=== PATIENT | female | born 1960 | race Caucasian/White ===

== ENCOUNTER 2017-06-17 19:29 | Inpatient (IN) | payer MEDICARE ==
[~2017-06-17] VITALS: Ht 157.5 cm; Wt 55.0 kg
[~2017-06-17 19:29] MED LIST: ACYC400T PO; ADDE20 PO; ARIP1TAB12 PO; CLON1 PO; DIVA500T PO; FLUT50SP EACH NARE; SERO300T PO
[2017-06-17 19:42] VITALS: BP 93/59; PULSE 93; RESP 16; TEMP 98.6; O2SAT 96
--- NOTE | 2017-06-17 19:47 | PD ---
HPI Chief Complaint: Psychiatric Time Seen by Provider: 19:41 Travel History International Travel<30 days: No Contact w/Intl Traveler<30days: No Traveled to known affect area: No History of Present Illness HPI 56-year-old female was Monico acted and brought in for evaluation. Patient took unknown amount of lorazepam since this morning. EMS personnel reported 41 pills missing from the bottle of lorazepam. Lorazepam is 5 mg each. Patient also admitted to alcohol consumption today. Patient states that she drank vodka since this morning. Patient's roommate called 911. Patient was Monico acted and brought in for evaluation. Patient states that she is suicidal. Patient denies any headache. Patient denies any chest pain or shortness of breath. Patient denies abdominal pain. Patient denies any extremity injury. Patient states that she has history of bipolar disorder. Patient denies any other medical problem. PFSH Social History Tobacco Use: No Allergies-Medications (Allergen,Severity, Reaction): Coded Allergies: No Known Allergies (Verified Allergy, Unknown, 06/17/17) Reported Meds & Prescriptions Reported Meds & Active Scripts Active Adderall (Amphetamine-Dextroamphetamine) 20 Mg Tab 20 Mg PO BID Avoid late evening doses. Space doses at least 4 to 6 hours if more than once/day dosing. Reported Ativan (Lorazepam) 0.5 Mg Tab 0.5 Mg PO DAILY PRN Fluticasone Nasal [place] 50 Mcg/Act Naspr 50 Mcg EACH NARE BID 50 mcg/spray Aripiprazole 10 Mg Tab 10 Mg PO DAILY Klonopin (Clonazepam) 1 Mg Tab 1 Mg PO TID Seroquel (Quetiapine Fumarate) 300 Mg Tab 300 Mg PO DAILY Divalproex DR (Divalproex Sodium) 500 Mg Tabdr 500 Mg PO TID Acyclovir 400 Mg Tab 400 Mg PO 5 TIMES A DAY Review of Systems General / Constitutional: No: Fever Eyes: No: Visual changes HENT: No: Headaches Cardiovascular: No: Chest Pain or Discomfort Respiratory: No: Shortness of Breath Gastrointestinal: No: Abdominal Pain Genitourinary: No: Dysuria Musculoskeletal: No: Pain Skin: No Rash Neurologic: No: Weakness Psychiatric: No: Depression Endocrine: No: Polydipsia Hematologic/Lymphatic: No: Easy Bruising Physical Exam Narrative GENERAL: Well-nourished, well-developed patient. SKIN: Focused skin assessment warm/dry. HEAD: Normocephalic. EYES: No scleral icterus. No injection or drainage. NECK: Supple, trachea midline. No JVD or lymphadenopathy. CARDIOVASCULAR: Regular rate and rhythm without murmurs, gallops, or rubs. RESPIRATORY: Breath sounds equal bilaterally. No accessory muscle use. GASTROINTESTINAL: Abdomen soft, non-tender, nondistended. MUSCULOSKELETAL: No cyanosis, or edema. BACK: Nontender without obvious deformity. No CVA tenderness. Neurologic exam: Patient is awake and alert oriented 3. Patient moves all extremity well. No obvious focal neurological deficit. Data Data Last Documented VS Vital Signs Date Time Temp Pulse Resp B/P (MAP) Pulse Ox O2 Delivery O2 Flow Rate FiO2 06/18/17 08:55 78 18 104/72 (83) 99 Room Air 06/17/17 21:06 98.2 Orders Orders Complete Blood Count With Diff (06/17/17 19:42) Comprehensive Metabolic Panel (06/17/17 19:42) Thyroid Stimulating Hormone (06/17/17 19:42) Psych Screen (06/17/17 19:42) Drug Screen, Random Urine (06/17/17 19:42) Alcohol (Ethanol) (06/17/17 19:42) Salicylates (Aspirin) (06/17/17 19:42) Tylenol (Acetaminophen) (06/17/17 19:42) Electrocardiogram (06/17/17 ) Diet Regular Basic (06/18/17 Breakfast) Acyclovir (Zovirax) (06/18/17 18:00) Fluticasone Zeus Spr (Flonase Zeus Spr) (06/18/17 21:00) Admit To Inpatient Psych (06/18/17 ) Vital Signs (Adult) SABIHA.Q12H.E (06/18/17 15:19) Activity Oob Ad Tia (06/18/17 15:19) Level Of Observation (Psych) (06/18/17 15:19) Diphenhydramine (Benadryl) (06/18/17 15:30) Acetaminophen (Tylenol) (06/18/17 15:30) Magnesium Hydroxide Liq (Milk Of Magnesi (06/18/17 15:30) Al-Mag Hy-Si 40-40-4 Mg/Ml Liq (Mag-Al P (06/18/17 15:30) Nicotine 21 Mg Patch.24 Hr (Habitrol 21 (06/18/17 15:30) Basic Metabolic Panel (Bmp) (06/19/17 06:00) Lipid Profile (06/19/17 06:00) Hemoglobin (Hgb) A1c (06/19/17 06:00) Alcohol Withdrawal Asmt-Ciwa Q4HX18 (06/18/17 15:19) ^ Seizure Precautions (06/18/17 15:19) Folic Acid (Folate) (06/19/17 09:00) Thiamine (Vit B1) (Vitamin B1) (06/19/17 09:00) Multivitamins-Minerals Therap (Theragran (06/19/17 09:00) Consult Cm-Etoh Abuse Dc Plan (06/18/17 ) Flumazenil Inj (Romazicon Inj) (06/18/17 15:30) Lorazepam (Ativan) (06/18/17 15:30) Lorazepam Inj (Ativan Inj) (06/18/17 15:30) Lorazepam (Ativan) (06/18/17 15:30) Lorazepam Inj (Ativan Inj) (06/18/17 15:30) Lorazepam Inj (Ativan Inj) (06/18/17 15:30) Lorazepam Inj (Ativan Inj) (06/18/17 15:30) Admit Order (Ed Use Only) (06/18/17 ) Labs Laboratory Tests Test 06/17/17 19:50 06/18/17 15:03 White Blood Count 4.4 TH/MM3 Red Blood Count 3.66 MIL/MM3 Hemoglobin 12.4 GM/DL Hematocrit 36.1 % Mean Corpuscular Volume 98.6 FL Mean Corpuscular Hemoglobin 33.8 PG Mean Corpuscular Hemoglobin Concent 34.3 % Red Cell Distribution Width 13.6 % Platelet Count 261 TH/MM3 Mean Platelet Volume 9.2 FL Neutrophils (%) (Auto) 33.5 % Lymphocytes (%) (Auto) 53.4 % Monocytes (%) (Auto) 7.6 % Eosinophils (%) (Auto) 3.3 % Basophils (%) (Auto) 2.2 % Neutrophils # (Auto) 1.5 TH/MM3 Lymphocytes # (Auto) 2.4 TH/MM3 Monocytes # (Auto) 0.3 TH/MM3 Eosinophils # (Auto) 0.1 TH/MM3 Basophils # (Auto) 0.1 TH/MM3 CBC Comment DIFF FINAL Differential Comment Blood Urea Nitrogen 21 MG/DL Creatinine 0.96 MG/DL Random Glucose 73 MG/DL Total Protein 7.6 GM/DL Albumin 4.0 GM/DL Calcium Level 8.9 MG/DL Alkaline Phosphatase 95 U/L Aspartate Amino Transf (AST/SGOT) 21 U/L Alanine Aminotransferase (ALT/SGPT) 21 U/L Total Bilirubin 0.3 MG/DL Sodium Level 141 MEQ/L Potassium Level 3.8 MEQ/L Chloride Level 104 MEQ/L Carbon Dioxide Level 23.7 MEQ/L Anion Gap 13 MEQ/L Estimat Glomerular Filtration Rate 61 ML/MIN Thyroid Stimulating Hormone 3rd Gen 0.753 uIU/ML Salicylates Level 2.3 MG/DL Acetaminophen Level LESS THAN 2.0 MCG/ML Ethyl Alcohol Level 143 MG/DL Urine Opiates Screen NEG Urine Barbiturates Screen NEG Urine Amphetamines Screen NEG Urine Benzodiazepines Screen NEG Urine Cocaine Screen POS Urine Cannabinoids Screen NEG MDM Medical Decision Making Medical Screen Exam Complete: Yes Emergency Medical Condition: Yes Interpretation(s) 22:02 PM. CBC with WBC 4.4. 53 lymphocytes. BUN 21. GFR 61. Salicylate and acetaminophen level normal. Alcohol 143. Differential Diagnosis Differential diagnosis including adjustment disorder, suicidal, depression, substance-induced mood disorder. Narrative Course 56-year-old female with alcohol consumption and took unknown amount of lorazepam today. Possible patient ingested 41 pills of lorazepam 5 mg. Patient states that she is suicidal. 22:04 PM. Patient is medically cleared for psychiatric evaluation. Tono Gibbs MD Jun 17, 2017 19:47
[2017-06-17 20:11] LABS: AUTOMATED NEUTROPHIL # 1.5 TH/MM3 (1.8-7.7); BASOPHIL # 0.1 TH/MM3 (0-0.2); BASOPHIL % 2.2 % (0.0-2.0); EOSINOPHIL # 0.1 TH/MM3 (0-0.4); EOSINOPHIL % 3.3 % (0.0-4.0); HEMATOCRIT 36.1 % (35.0-46.0); HEMOGLOBIN 12.4 GM/DL (11.6-15.3); LYMPH % 53.4 % (9.0-44.0); LYMPHOCYTE # 2.4 TH/MM3 (1.0-4.8); MEAN CELL VOLUME 98.6 FL (80.0-100.0); MEAN CORPUSCULAR HEMOGLOBIN 33.8 PG (27.0-34.0); MEAN CORPUSCULAR HGB CONC 34.3 % (32.0-36.0); MEAN PLATELET VOLUME 9.2 FL (7.0-11.0); MONO % 7.6 % (0.0-8.0); MONOCYTE # 0.3 TH/MM3 (0-0.9); NEUT % 33.5 % (16.0-70.0); PLATELET COUNT 261 TH/MM3 (150-450); RED BLOOD COUNT 3.66 MIL/MM3 (4.00-5.30); RED CELL DISTRIBUTION WIDTH 13.6 % (11.6-17.2); WHITE BLOOD COUNT 4.4 TH/MM3 (4.0-11.0)
[2017-06-17 20:25] LABS: ALT (GPT) 21 U/L (10-53); AST (GOT) 21 U/L (15-37); BICARBONATE 23.7 MEQ/L (21.0-32.0); CALCIUM 8.9 MG/DL (8.5-10.1); CHLORIDE 104 MEQ/L (98-107); CREATININE 0.96 MG/DL (0.50-1.00); GLOMERULAR FILTRATION RATE 61 ML/MIN (>89); GLUCOSE,RANDOM 73 MG/DL (74-106); SODIUM (NA) 141 MEQ/L (136-145)
[2017-06-17 20:31] LABS: ALKALINE PHOSPHATASE 95 U/L (45-117); BLOOD UREA NITROGEN 21 MG/DL (7-18); TOTAL BILIRUBIN ADULT 0.3 MG/DL (0.2-1.0); TOTAL PROTEIN 7.6 GM/DL (6.4-8.2)
[2017-06-17 20:48] LABS: ACETAMINOPHEN LESS THAN 2.0 MCG/ML (10.0-30.0)
[2017-06-17 21:06] VITALS: BP 110/62; PULSE 90; RESP 16; TEMP 98.2; O2SAT 96
[2017-06-17 22:25] VITALS: BP 108/70; PULSE 89; RESP 15; O2SAT 98
[2017-06-18 01:41] VITALS: BP 100/64; PULSE 94; RESP 16; O2SAT 98
[2017-06-18] MEDS ORDERED: LORA-392 PO (01:43)
[2017-06-18 04:44] VITALS: BP 110/64; PULSE 91; RESP 16; O2SAT 98
[2017-06-18 06:40] VITALS: BP 100/72; PULSE 92; RESP 16; O2SAT 98
[2017-06-18 08:55] VITALS: BP 104/72; PULSE 78; RESP 18; O2SAT 99
[2017-06-18] MEDS ORDERED: MAGNESIUM HYDROXIDE SUSP 30 ML CUP PO PRN (15:30)
[2017-06-18] MEDS ORDERED: LORazepam 2 MG TAB PO PRN (15:30)
[2017-06-18] MEDS ORDERED: NICOTINE 21 MG/24 HR PATCH T-DERMAL PRN (15:30)
[2017-06-18] MEDS ORDERED: LORazepam 2 MG/ML VIAL IM PRN ×4 (15:30)
[2017-06-18] MEDS ORDERED: FLUMAZENIL 0.5 MG/5 ML VIAL IV PUSH PRN (15:30)
[2017-06-18] MEDS ORDERED: ALUMINUM/MAGNESIUM/SIMETH 30 ML CUP PO PRN (15:30)
[2017-06-18] MEDS ORDERED: diphenhydrAMINE HCL 50 MG CAP PO PRN (15:30)
[2017-06-18] MEDS ORDERED: ACETAMINOPHEN 325 MG TAB PO PRN (15:30)
[2017-06-18] MEDS ORDERED: LORazepam 1 MG TAB PO PRN (15:30)
[2017-06-18] MEDS: ACYCLOVIR 200 MG CAP PO SCH ×2 (18:00→22:00)
[2017-06-18 18:03] VITALS: BP 129/58; PULSE 89; RESP 18; O2SAT 100
[2017-06-18] MEDS: FLUTICASONE PROPIONATE 50 MCG/ACT 16 GM NASAL SPRAY EACH NARE SCH (21:00)
[2017-06-18 23:10] VITALS: BP 115/63; PULSE 93; RESP 18; TEMP 97.6; O2SAT 96
--- NOTE | 2017-06-19 00:31 | EKG ---
Date Performed: 06/17/2017 Time Performed: 19:41:00 PTAGE: 56 years EKG: Sinus rhythm NORMAL ECG NO PREVIOUS TRACING DOCTOR: Richi Ralph Interpretating Date/Time 06/19/2017 00:29:11
[2017-06-19] MEDS: ACYCLOVIR 200 MG CAP PO SCH ×5 (05:06→20:42)
[2017-06-19 06:04] VITALS: BP 97/64; PULSE 74; RESP 18; TEMP 97.4; O2SAT 99
--- NOTE | 2017-06-19 08:32 | HHI.HP ---
Provisional Diagnosis Admission Date Jun 18, 2017 at 15:22 Hart[place] I. 1. Adjustment disorder with mixed disturbance of emotions and conduct 2. History of bipolar disorder 3. Rule out substance use disorder Hartman II. Deferred Certification of Person's Competence To Provide Express and Informed Consent I have personally examined Jaja Doyle , a person being served at [facility] on, Jun 19, 2017 08:23. Express and informed consent means consent voluntarily given in writing, by a competent person, after sufficient explanation and disclosure of the subject matter involved to enable the person to make a knowing and willful decision without any element of force, fraud, deceit, duress, or other form of constraint or coercion. This person is 18 years of age or older, is not now known to be incompetent to consent to treatment with a guardian advocate, and does not have a health care surrogate or proxy currently making medical treatment decisions. I have found this person to be one of the following: [x] Competent to provide express and informed consent, as defined above, for voluntary admission to this facility and is competent to provide express and informed consent for treatment. He/she has the consistent capacity to make well reasoned, willful, and knowing decisions concerning his or her medical or mental health treatment. The person fully and consistently understands the purpose of the admission for examination/placement and is fully capable of personally exercising all rights [place] Incompetent to provide express and informed consent to voluntary admission, and this is incompetent to provide express and informed consent to treatment. The person must be transferred to involuntary status and a petition for a guardian advocate filed with the Circuit Court. [] Refusing to provide express and informed consent to voluntary admission but is competent to provide express and informed consent for treatment. The person must be discharged or transferred to involuntary status. Form shall be completed within 24 hours of a person's arrival at the receiving facility and filed in the clinical record of each person: 1. Admitted on a voluntary basis 2. Permitted to provide express and informed consent to his/her own treatment 3. Allowed to transfer from involuntary to voluntary status 4. Prior to permitting a person to consent to his or her own treatment after having been previously found incompetent to consent to treatment. History of Present Illness Capacity: Has Capacity Psych Chief Complaint: Overdose HPI Ms. Doyle is a 56-year-old female with a reported history of bipolar disorder who presented under a Marc act by law enforcement alleging that the patient advised that she took all of her prescription medication at one time in combination with alcohol in an attempt to end her life. ED provider notes indicate that the patient may have taken approximately 40 Ativan tablets. Patient was medically cleared by the ED provider. Reviewing the electronic medical record, I note that this is patient's first visit to [place]. Patient seen and examined with nurse. Chart reviewed. Case discussed with nursing staff. On my examination today, the patient presents as tearful and dysphoric. She admits to "terrible" mood as well as sleep and appetite disturbance and hopeless feelings. However, the patient presently denies that her presenting overdose was suicidal in nature. She remembers making the overdose, saying that she took the Ativan tablets perhaps 4 or 5 at a time over several hours but insists that she cannot recall why she did so. The most that she will say is "I just kept at it. I had not had it in so long." Patient notes that she has been without her psychotropic medications since she moved down from [place] in February. She apparently recently began seeing a new outpatient provider who provided the prescription for the Ativan Along with her other psychotropics. I can elicit no hypomanic or manic symptoms. She denies any audiovisual hallucinations. I can elicit no delusional material. The remainder of the psychiatric ROS is negative. The patient has no acute physical complaints. Past psychiatric history: The patient reports a history of bipolar disorder. She recently began seeing a new provider by the name of Marc at [facility]. She reports that she does well on Trileptal 300 mg twice daily, Seroquel 300 mg at bedtime, Ativan 2 mg up to 3 times daily and Adderall 20 mg twice daily. She denies a history of psychiatric admissions. Denies a history of suicide attempts. Denies a history of violent behavior. Family history: The patient reports that her mother has bipolar disorder. There is no family history of suicide. Chemical dependency history: The patient denies any abuse of drugs or alcohol. Social history: Patient has a fiancee and 2 children. She is college educated with a degree in business. She is presently on SSDI. She denies any history. Denies any legal history. Denies any access to guns or firearms. Describes herself as spiritual. Denies any history of trauma. Review of Systems Except as stated in HPI: all other systems reviewed are Neg Past Family Social History Coded Allergies: Penicillins (Verified Allergy, Unknown, 06/19/17) Past Medical History Patient denies any medical issues. Active Scripts Amphetamine-Dextroamphetamine (Adderall) 20 Mg Tab, 20 MG PO BID for Hyperactivity Control, #60 TAB 0 Refills Avoid late evening doses. Space doses at least 4 to 6 hours if more than once/day dosing. Prov:Dylon Christy MD R2 03/14/17 Reported Medications Lorazepam (Ativan) 0.5 Mg Tab, 0.5 MG PO DAILY Y for ANXIETY AND/OR AGITATION, TAB 0 Refills 06/18/17 Fluticasone Nasal [place] (Fluticasone Nasal [place]) 50 Mcg/Act Naspr, 50 MCG EACH NARE BID for Allergy Management, #1 BOTTLE 0 Refills 50 mcg/spray 03/10/17 Aripiprazole (Aripiprazole) 10 Mg Tab, 10 MG PO DAILY, #30 TAB 0 Refills 03/10/17 Clonazepam (Klonopin) 1 Mg Tab, 1 MG PO TID, #90 TAB 0 Refills 03/10/17 Quetiapine (Seroquel) 300 Mg Tab, 300 MG PO DAILY, #30 TAB 0 Refills 03/10/[address] (Divalproex DR) 500 Mg Tabdr, 500 MG PO TID for Control Seizures, #60 TAB 0 Refills 03/10/17 Acyclovir (Acyclovir) 400 Mg Tab, 400 MG PO 5 TIMES A DAY for Mgmt Viral Infection, TAB 0 Refills 03/10/17 Current Medications Medications (Trade) Dose Ordered Sig/Ana Lilia Route Start Time Stop Time Status Last Admin (Zovirax) 400 mg 5 TIMES A DAY PO 06/18/17 18:00 06/18/17 22:00 (Flonase Zeus Spr) 1 spray BID EACH NARE 06/18/17 21:00 06/18/17 21:00 (Benadryl) 50 mg HS PRN PO 06/18/17 15:30 (Tylenol) 650 mg Q4H PRN PO 06/18/17 15:30 (Milk Of Magnesia Liq) 30 ml DAILY PRN PO 06/18/17 15:30 (Mag-Al Plus Susp Liq) 30 ml Q6H PRN PO 06/18/17 15:30 (Habitrol 21 Mg Patch.24 Hr) 1 patch DAILY PRN T-DERMAL 06/18/17 15:30 (Folate) 1 mg DAILY PO 06/19/17 09:00 06/24/17 08:59 (Vitamin B1) 100 mg DAILY PO 06/19/17 09:00 (Theragran M Tab) 1 tab DAILY PO 06/19/17 09:00 06/24/17 08:59 (Romazicon Inj) 0.2 mg Q1M PRN IV PUSH 06/18/17 15:30 (Ativan) 1 mg Q4H PRN PO 06/18/17 15:30 (Ativan Inj) 1 mg Q4H PRN IM 06/18/17 15:30 (Ativan) 2 mg Q2H PRN PO 06/18/17 15:30 (Ativan Inj) 2 mg Q2H PRN IM 06/18/17 15:30 (Ativan Inj) 2 mg Q1H PRN IM 06/18/17 15:30 (Ativan Inj) 2 mg Q15M PRN IM 06/18/17 15:30 Miscellaneous Information 1 DAILY T-DERMAL 06/19/17 09:00 Patient's Strengths (min. 2) In a monitored setting. Verbally fluent. Physical Exam Physical exam completed by ED provider. On my examination today, the patient appears to be in no acute physical distress. No motor abnormalities noted. No signs of intoxication or withdrawal noted. Labs and vitals reviewed: Vital Signs Vital Signs Date Time Temp Pulse Resp B/P (MAP) Pulse Ox O2 Delivery O2 Flow Rate FiO2 06/19/17 06:04 97.4 74 18 97/64 (75) 99 06/18/17 18:03 Room Air Lab Results Laboratory Tests Test 06/17/17 19:50 06/18/17 15:03 06/19/17 07:40 White Blood Count 4.4 TH/MM3 Red Blood Count 3.66 MIL/MM3 Hemoglobin 12.4 GM/DL Hematocrit 36.1 % Mean Corpuscular Volume 98.6 FL Mean Corpuscular Hemoglobin 33.8 PG Mean Corpuscular Hemoglobin Concent 34.3 % Red Cell Distribution Width 13.6 % Platelet Count 261 TH/MM3 Mean Platelet Volume 9.2 FL Neutrophils (%) (Auto) 33.5 % Lymphocytes (%) (Auto) 53.4 % Monocytes (%) (Auto) 7.6 % Eosinophils (%) (Auto) 3.3 % Basophils (%) (Auto) 2.2 % Neutrophils # (Auto) 1.5 TH/MM3 Lymphocytes # (Auto) 2.4 TH/MM3 Monocytes # (Auto) 0.3 TH/MM3 Eosinophils # (Auto) 0.1 TH/MM3 Basophils # (Auto) 0.1 TH/MM3 CBC Comment DIFF FINAL Differential Comment Estimat Glomerular Filtration Rate 61 ML/MIN Blood Urea Nitrogen 21 MG/DL Creatinine 0.96 MG/DL Random Glucose 73 MG/DL Total Protein 7.6 GM/DL Albumin 4.0 GM/DL Calcium Level 8.9 MG/DL Alkaline Phosphatase 95 U/L Aspartate Amino Transf (AST/SGOT) 21 U/L Alanine Aminotransferase (ALT/SGPT) 21 U/L Total Bilirubin 0.3 MG/DL Sodium Level 141 MEQ/L Potassium Level 3.8 MEQ/L Chloride Level 104 MEQ/L Carbon Dioxide Level 23.7 MEQ/L Thyroid Stimulating Hormone 3rd Gen 0.753 uIU/ML Salicylates Level 2.3 MG/DL Acetaminophen Level LESS THAN 2.0 MCG/ML Ethyl Alcohol Level 143 MG/DL Urine Opiates Screen NEG Urine Barbiturates Screen NEG Urine Amphetamines Screen NEG Urine Benzodiazepines Screen NEG Urine Cocaine Screen POS Urine Cannabinoids Screen NEG Mental Status Examination Appearance: Appropriate Consciousness: Alert Orientation: x4 Motor Activity: Normal gait Speech: Unremarkable Language: Adequate Fund of Knowledge: Adequate Attention and Concentration: Adequate Memory: Unremarkable Mood: Other (Dysphoric) Affect: Other (Tearful) Thought Process & Associations: Intact, Logical, Linear Thought Content: Appropriate Hallucination Type: None Delusion Type: None Suicidal Ideation: No (Unclear whether patient is reliable to contract for safety) Suicidal Plan: No Suicidal Intention: No Homicidal Ideation: No Homicidal Plan: No Homicidal Intention: No Mental Status Exam Remarks Insight and judgment are presently unclear Assessment & Plan Problem List: (1) Adjustment disorder with mixed disturbance of emotions and conduct ICD Codes: F43.25 - Adjustment disorder with mixed disturbance of emotions and conduct (2) History of bipolar disorder ICD Codes: Z86.59 - Personal history of other mental and behavioral disorders Assessment & Plan 56-year-old female with psychiatric history as detailed above who presents under Marc act following benzodiazepine overdose in the setting of alcohol. Patient insists that overdose was not suicidal in nature but cannot provide an explanation for this behavior. Differential diagnosis would include suicidal overdose or recreational drug overdose. Patient does endorse depressive symptoms, and it is alleged that she told the officer that she took the pills to end her life, and this certainly lends credence to the hypothesis that this was a suicidal overdose. Patient requires psychiatric hospitalization at this time for safety, observation and stabilization. Admit inpatient. Voluntary status. I will resume patient's Seroquel and Trileptal. Seroquel 100 mg at bedtime since the patient has been without for several months to avoid excessive sedation. Trileptal 300 mg twice daily. I will not resume patient's benzodiazepine or stimulant at this time as there is concern for substance use disorder. CIWA scale with Ativan for the management of any withdrawal. Seizure precautions. Consult to hospitalist for medical management. Vitals every shift. Counselor to see. Collateral information. Disposition planning. Estimated length of stay: 3-5 days. Discharge Planning Pending outcome of observation Request HC Surrog/Guard Advoc?: No Saw Hook MD Jun 19, 2017 08:32
[2017-06-19 08:58] LABS: BICARBONATE 29.3 MEQ/L (21.0-32.0); BLOOD UREA NITROGEN 19 MG/DL (7-18); CALCIUM 9.4 MG/DL (8.5-10.1); CHLORIDE 101 MEQ/L (98-107); CREATININE 0.87 MG/DL (0.50-1.00); GLOMERULAR FILTRATION RATE 68 ML/MIN (>89); GLUCOSE,RANDOM 111 MG/DL (74-106); SODIUM (NA) 138 MEQ/L (136-145)
[2017-06-19 09:00] LABS: CHOLESTEROL 286 MG/DL (120-200); TRIGLYCERIDES 195 MG/DL (42-150)
[2017-06-19] MEDS: REMOVE OLD PATCH T-DERMAL SCH (09:00)
[2017-06-19] MEDS: FLUTICASONE PROPIONATE 50 MCG/ACT 16 GM NASAL SPRAY EACH NARE SCH ×2 (09:00→21:00)
[2017-06-19 09:03] LABS: CHOLESTEROL/ HDL RATIO 2.96 RATIO; HDL CHOLESTEROL 96.6 MG/DL (40.0-60.0); LDL CHOLESTEROL 150 MG/DL (0-99)
[2017-06-19] MEDS: FOLIC ACID 1 MG TAB PO SCH (09:14)
[2017-06-19] MEDS: OXcarbazepine 300 MG TAB PO SCH ×2 (09:14→20:42)
[2017-06-19] MEDS: MULTIVITAMINS/MINERALS THERAPEUTIC TAB PO SCH (09:14)
[2017-06-19] MEDS: THIAMINE HCL 100 MG TAB PO SCH (09:14)
--- NOTE | 2017-06-19 10:22 | PD.CONS ---
HPI Service Family Medicine Consult Requested By psychiatry Reason for Consult medical management Primary Care Physician No Primary Care Physician History of Present Illness Patient is a 56-year-old female with significant past medical history of bipolar , herpes simplex and alcohol abuse who presented to the emergency room as a Marc act on 06/17/17 for ingestion of lorazepam ( per ED note: EMS reported that 41 pills were missing from bottle of lorazepam) and alcohol. Per ED note patient reported drinking vodka the entire day and endorsed suicidal ideation. Psych was consulted and pt was admitted for evaluation. Patient was seen and examined this morning by FM team. Patient reports she is doing well and has no complaints. Denies depressed mood, CP, SOB, palpitation, dysuria, N/V. Patient reports she wants to go home. She had a good night sleep. On review of HPI pt endorses that she was drinking about 1/5 of Vodka and benzo on 06/17/17. Patient stated that since moving to [place] in 2016 she has not been able to establish with psychiatrist or pcp for refill on her medication and thus she has been self medicating. Denies h/o of IVDU, cocaine or other illicit drug use. Denies any h/o of seizures or alcohol withdrawal. Denies hallucinations, tremors, diaphoresis. Denies any active herpes lesions, burning, or numbness/tingling in genital region. Reported medications: Trileptal, Seroquel, benzodiazepine, Ativan, Adderall and acyclovir. Review of Systems Constitutional: DENIES: Fever, Chills, Dizziness, Change in appetite Eyes: DENIES: Eye pain Ears, nose, mouth, throat: DENIES: Ear Pain, Sinus Pain Respiratory: DENIES: Cough, Shortness of breath Cardiovascular: DENIES: Chest pain, Palpitations, Lower Extremity Edema Gastrointestinal: DENIES: Abdominal pain, Constipation, Diarrhea, Nausea, Vomiting Genitourinary: DENIES: Urinary frequency, Dysuria Musculoskeletal: DENIES: Joint Swelling Integumentary: DENIES: Pruritus, Rash Hematologic/lymphatic: DENIES: Bruising Immunologic/allergic: DENIES: Urticaria Neurologic: DENIES: Headache, Seizures, Tremor Psychiatric: DENIES: Confusion, Mood changes, Depression, Hallucinations, Suicidal Ideation Past Family Social History Past Medical History Bipolar Disorder Herpes simplex, last outbreak 5 wks ago Alcohol substance use Past Surgical History none Reported Medications Reported medications: Trileptal, Seroquel, benzodiazepine, Ativan, Adderall and acyclovir. Allergies: Coded Allergies: Penicillins (Verified Allergy, Unknown, 06/19/17) Family History mother has bipolar disorder. Social History Patient move from [place] to [place] in 2016. Lives with fiance of 13 yrs Alcohol: 1/5th of vodka since 2003 Smoking: vipe nicotine dose 12 Illicit drug use: Physical Exam Vital Signs Vital Signs Date Time Temp Pulse Resp B/P (MAP) Pulse Ox O2 Delivery O2 Flow Rate FiO2 06/19/17 06:04 97.4 74 18 97/64 (75) 99 06/18/17 23:10 97.6 93 18 115/63 (80) 96 06/18/17 23:10 06/18/17 18:03 89 18 129/58 (81) 100 Room Air Physical Exam GENERAL: This is a well-nourished, well-developed patient, in no apparent distress. SKIN: No rashes, ecchymoses or lesions. Cool and dry. HEAD: Atraumatic. Normocephalic. no sinus tenderness. small non-tender bruise under right eye (pt stated it is healing, she sustained bruise after a fall 2 wks ago while she was under the influence of alcohol and Seroquel) EYES: Pupils dilated equal round and reactive. Extraocular motions intact. No scleral icterus. No injection or drainage. ENT: Nose without bleeding, purulent drainage or septal hematoma. Throat without erythema, tonsillar hypertrophy or exudate. Uvula midline. Airway patent. NECK: No JVD or lymphadenopathy. Supple, nontender, no meningeal signs. CARDIOVASCULAR: Normal S1 and S2. Regular rate and rhythm without murmurs, gallops, or rubs. RESPIRATORY: Clear to auscultation. Breath sounds equal bilaterally. No wheezes , rales, or rhonchi. GASTROINTESTINAL: Abdomen soft, non-tender, nondistended. No hepato-splenomegaly , or palpable masses. No guarding. MUSCULOSKELETAL: Extremities without clubbing, cyanosis, or edema. No joint tenderness, effusion, or edema noted. No calf tenderness. Negative Homans sign bilaterally. NEUROLOGICAL: Awake and alert. Cranial nerves II through XII intact. Motor and sensory grossly within normal limits. Five out of 5 muscle strength in all muscle groups. Normal speech. Patient tearful when mentioned that she " just want to go home" Laboratory Laboratory Tests Test 06/18/17 15:03 06/19/17 07:40 Urine Opiates Screen NEG Urine Barbiturates Screen NEG Urine Amphetamines Screen NEG Urine Benzodiazepines Screen NEG Urine Cocaine Screen POS Urine Cannabinoids Screen NEG Blood Urea Nitrogen 19 Creatinine 0.87 Random Glucose 111 Calcium Level 9.4 Sodium Level 138 Potassium Level 3.9 Chloride Level 101 Carbon Dioxide Level 29.3 Anion Gap 8 Estimat Glomerular Filtration Rate 68 Triglycerides Level 195 Cholesterol Level 286 LDL Cholesterol 150 HDL Cholesterol 96.6 Cholesterol/HDL Ratio 2.96 Result Diagram: 06/17/17 1950 06/19/17 0740 Assessment and Plan Assessment and Plan Patient is a 56-year-old female with significant past medical history of bipolar , herpes simplex and alcohol abuse who presented with: Code Status full code Discussed Condition With Dr. Aguiar Problem List: (1) Alcohol abuse ICD Codes: F10.10 - Alcohol abuse, uncomplicated Status: Chronic Plan: Patient with chronic hx of alcohol abuse since 2003 On admission alcohol level 143 Other illicit substance positive of UDS: cocaine Patient present under Marc act to ED for substance use. c/w CIWA protocol and rally pack CIWA score of zero thus far continue to monitor vs (2) History of bipolar disorder ICD Codes: Z86.59 - Personal history of other mental and behavioral disorders Status: Chronic Plan: Patient reports stable mood c/w psych medication recommendations (3) Suicidal ideation ICD Codes: R45.851 - Suicidal ideations Status: Resolved Plan: ED note of 06/17 reports patient was positive for suicidal ideation. Patient denies suicidal ideation. Patient also denies attempt (4) Hyperlipemia ICD Codes: E78.5 - Hyperlipidemia, unspecified Plan: Patient with elevated: Triglycerides 195 Cholesterol 286 LDL cholesterol 150 Hyperlipidemia likely due to psychiatric medications, such as Seroquel. (5) Nutrition, metabolism, and development symptoms ICD Codes: R63.8 - Other symptoms and signs concerning food and fluid intake Plan: Fluids: not indicated at this time, pt tolerating po Electrolytes: WNL, replete as needed Nutrition: regular diet DVT ppx: early ambulation Deisy Randall MD, R1 Jun 19, 2017 10:22
[2017-06-19] MEDS: hydrOXYzine HCL 50 MG TAB PO PRN (15:06)
[2017-06-19 17:09] LABS: HEMOGLOBIN A1C 4.7 % (4.3-6.0)
[2017-06-19 17:14] VITALS: BP 113/66; PULSE 82; RESP 16; TEMP 98.2; O2SAT 99
[2017-06-19] MEDS ORDERED: QUEtiapine FUMARATE 100 MG TAB PO SCH (21:00)
[2017-06-20] MEDS: ACYCLOVIR 200 MG CAP PO SCH ×5 (06:00→20:27)
[2017-06-20 06:10] VITALS: BP 99/63; PULSE 78; RESP 18; TEMP 96.8; O2SAT 97
[2017-06-20] MEDS: OXcarbazepine 300 MG TAB PO SCH ×2 (08:36→20:28)
[2017-06-20] MEDS: MULTIVITAMINS/MINERALS THERAPEUTIC TAB PO SCH (08:36)
[2017-06-20] MEDS: FLUTICASONE PROPIONATE 50 MCG/ACT 16 GM NASAL SPRAY EACH NARE SCH ×2 (08:36→20:29)
[2017-06-20] MEDS: FOLIC ACID 1 MG TAB PO SCH (08:36)
[2017-06-20] MEDS: THIAMINE HCL 100 MG TAB PO SCH (08:36)
[2017-06-20] MEDS: hydrOXYzine HCL 50 MG TAB PO PRN ×2 (08:47→15:00)
[2017-06-20] MEDS: REMOVE OLD PATCH T-DERMAL SCH (09:00)
--- NOTE | 2017-06-20 09:35 | HHI.FPPN ---
Subjective Remarks Pt seen and examined this morning. Pt feels well and back to normal self. States she feels ready to go home. She states she took about 10 ativan yesterday along with drinking alcohol throughout the day. States she last did cocaine a few days ago. Denies any fever/chills, headache, dizziness, chest pain , SOB, abdominal pain, leg pain. (Dylon Christy MD R2) Objective Vitals Vital Signs Date Time Temp Pulse Resp B/P (MAP) Pulse Ox O2 Delivery O2 Flow Rate FiO2 06/20/17 06:10 96.8 78 18 99/63 (75) 97 06/19/17 17:14 98.2 82 16 113/66 (82) 99 I/O 06/19/17 06/19/17 06/19/17 06/20/17 06/20/17 06/20/17 07:00 15:00 23:00 07:00 15:00 23:00 Intake Total 240 ml Balance 240 ml Intake Oral 240 ml (Dylon Christy MD R2) Result Diagram: 06/17/17 1950 06/19/17 0740 Objective Remarks GENERAL: This is a well-nourished, well-developed patient, in no apparent distress. SKIN: No rashes, ecchymoses or lesions. Cool and dry. CARDIOVASCULAR: Normal S1 and S2. Regular rate and rhythm without murmurs, gallops, or rubs. RESPIRATORY: Clear to auscultation. Breath sounds equal bilaterally. No wheezes , rales, or rhonchi. GASTROINTESTINAL: Abdomen soft, non-tender, nondistended. No hepato-splenomegaly , or palpable masses. MUSCULOSKELETAL: Extremities without clubbing, cyanosis, or edema. No calf tenderness. NEUROLOGICAL: Awake and alert. Motor and sensory grossly within normal limits. Normal speech. (Dylon Christy MD R2) A/P Assessment and Plan Patient is a 56-year-old female with significant past medical history of bipolar , herpes simplex and alcohol abuse who presented with overdose on Ativan, also with alcohol intoxication. Pt admitted to psych for workup. Pt medically stable and ok to discharge tomorrow with follow-up. Discharge Planning Pending psychiatry evaluation and clearance (Dylon Christy MD R2) Attending Attestation Patient was seen today at 3:15 PM. She was discussed earlier in the day with the medicine team. She feels ready to go home, has an appointment with psychiatry tomorrow and neurology in 2 weeks upon the recommendation of her psychiatrist. She plans to follow-up with Dr. Christy as well. No questions today. I agree with the physical exam as documented above, and agree that there are no further plans from our perspective that would hinder her from discharge tomorrow. (Lachelle Byrnes MD) Problem List: (1) Alcohol abuse ICD Codes: F10.10 - Alcohol abuse, uncomplicated Status: Chronic Plan: Patient with chronic hx of alcohol abuse since 2003 On admission alcohol level 143 Other illicit substance positive of UDS: cocaine Patient present under Marc act to ED for substance use. c/w CIWA protocol and rally pack CIWA score of zero thus far continue to monitor vs (2) History of bipolar disorder ICD Codes: Z86.59 - Personal history of other mental and behavioral disorders Status: Chronic Plan: Patient reports stable mood c/w psych medication recommendations (3) Suicidal ideation ICD Codes: R45.851 - Suicidal ideations Status: Resolved Plan: ED note of 06/17 reports patient was positive for suicidal ideation. Patient denies suicidal ideation. Patient also denies attempt (4) Hyperlipemia ICD Codes: E78.5 - Hyperlipidemia, unspecified Plan: Patient with elevated: Triglycerides 195 Cholesterol 286 LDL cholesterol 150 Hyperlipidemia likely due to psychiatric medications, such as Seroquel. (5) Nutrition, metabolism, and development symptoms ICD Codes: R63.8 - Other symptoms and signs concerning food and fluid intake Plan: Fluids: not indicated at this time, pt tolerating po Electrolytes: WNL, replete as needed Nutrition: regular diet DVT ppx: early ambulation (Dylon Christy MD R2) Dylon Christy MD R2 Jun 20, 2017 09:35 Lachelle Byrnes MD Jun 20, 2017 16:04
--- NOTE | 2017-06-20 11:58 | HHI.PYPN ---
Subjective Chief Complaint: Overdose Remarks Patient seen and examined with nurse. Chart reviewed. Case discussed with nursing staff. No behavioral issues noted overnight. Case discussed in treatment team. Counselor notes that the patient was very insistent that we not inform her outpatient prescriber that she had overdosed on her benzodiazepines. On my examination today, the patient denies suicidal or homicidal ideation. She insists that presenting overdose was a "one-time" episode. No reported mood symptoms, although affect does remain a little bit labile. Denies audiovisual hallucinations. Denies suicidal or homicidal ideation. Denies side effects from medications. No physical complaints. Agreeable to titration of Seroquel. Review of Systems Except as stated in HPI: all other systems reviewed are Neg Mental Status Examination Appearance: Appropriate Consciousness: Alert Orientation: x4 Motor Activity: Normal gait, Other (No abnormal motor movements noted) Speech: Unremarkable Language: Adequate Fund of Knowledge: Adequate Attention and Concentration: Adequate Memory: Unremarkable Mood: Other (No reported issues with mood) Affect: Labile (Mild) Thought Process & Associations: Intact, Logical, Linear Thought Content: Appropriate Hallucination Type: None Delusion Type: None Suicidal Ideation: No Suicidal Plan: No Suicidal Intention: No Homicidal Ideation: No Homicidal Plan: No Homicidal Intention: No Mental Status Exam Remarks Insight and judgment are fair to poor Results Labs Test 06/20/17 06:58 Hepatitis C IgG Antibody NONREACTIVE HIV (1&2) Ab and P24 Ag, 4th Gener NONREACTIVE Labs reviewed Vitals/IOs Vital Signs Date Time Temp Pulse Resp B/P (MAP) Pulse Ox O2 Delivery O2 Flow Rate FiO2 06/20/17 06:10 96.8 78 18 99/63 (75) 97 06/18/17 18:03 Room Air Assessment & Plan Problem List: (1) Adjustment disorder with mixed disturbance of emotions and conduct ICD Codes: F43.25 - Adjustment disorder with mixed disturbance of emotions and conduct (2) History of bipolar disorder ICD Codes: Z86.59 - Personal history of other mental and behavioral disorders Status: Chronic Assessment & Plan Titrate Seroquel to 200 mg at bedtime. Continue other psychotropics as ordered. Hospitalist input noted and appreciated. Continue other medications and care as ordered. Justification for Cont. Inpt. Med changes. Risk for decompensation in less restrictive environment. Discharge Planning Possible discharge tomorrow, Monday. Request HC Surrog/Guard Advoc?: No Saw Hook MD Jun 20, 2017 11:58
--- NOTE | 2017-06-20 15:42 | PD.TTN ---
Patient Problems 1. Discharge planning 2. Medication compliance 3. Knowledge deficit 4. Lack of coping skills Progress Toward Goals Provider Present: Dr. Yakov Hook Provider Input: 06/20/17 patient overdosed on Benzos , anticipated discharge for today or tomorrow pending collateral from boyfriend who she is living with Psychiatric Counselors Present: Vale Simental LCSW Psych Therapist Input: 06/20/17 pt appears aggitated and discharge oriented Group Spec/RT/OT/CARBONE Present: TAMMY Mendez Group Spec/RT/OT/CARBONE Input: 06/20/17 new to rec therapy Vale Simental LCSW Jun 20, 2017 15:42
[2017-06-20 15:58] VITALS: BP 102/68; PULSE 62; RESP 18; TEMP 97.9; O2SAT 98
[2017-06-20] MEDS ORDERED: QUEtiapine FUMARATE 100 MG TAB PO SCH (21:00)
[2017-06-21 05:26] VITALS: BP 119/77; PULSE 82; RESP 14; TEMP 98.1; O2SAT 100
[2017-06-21] MEDS: ACYCLOVIR 200 MG CAP PO SCH (06:29)
[2017-06-21] MEDS: MULTIVITAMINS/MINERALS THERAPEUTIC TAB PO SCH (08:46)
[2017-06-21] MEDS: OXcarbazepine 300 MG TAB PO SCH (08:47)
[2017-06-21] MEDS: FOLIC ACID 1 MG TAB PO SCH (08:47)
[2017-06-21] MEDS: THIAMINE HCL 100 MG TAB PO SCH (08:48)
[2017-06-21] MEDS: REMOVE OLD PATCH T-DERMAL SCH (09:00)
[2017-06-21] MEDS: FLUTICASONE PROPIONATE 50 MCG/ACT 16 GM NASAL SPRAY EACH NARE SCH (09:00)
[2017-06-21] MEDS ORDERED: OXCA300T PO (10:16)
[2017-06-21] MEDS ORDERED: FOLI1TAB6 PO (10:16)
[2017-06-21] MEDS ORDERED: THIA100 PO (10:16)
[2017-06-21] MEDS ORDERED: QUET1TAB8 PO (10:16)
--- NOTE | 2017-06-21 10:16 | HHI.DS ---
Psychiatry Discharge Summary Inpatient Psychiatric care?: Yes Advance Directive: No Reason Not Provided: DECLINED Mental Health AdvanceDirective: No Health Care Proxy: No Admission Admission Date Jun 18, 2017 at 15:22 Admission Diagnosis: (1) Adjustment disorder with mixed disturbance of emotions and conduct ICD Code: F43.25 - Adjustment disorder with mixed disturbance of emotions and conduct (2) History of bipolar disorder ICD Code: Z86.59 - Personal history of other mental and behavioral disorders Brief History Ms. Doyle is a 56-year-old female with a reported history of bipolar disorder who presented under a Marc act by law enforcement alleging that the patient advised that she took all of her prescription medication at one time in combination with alcohol in an attempt to end her life. ED provider notes indicate that the patient may have taken approximately 40 Ativan tablets. Patient was medically cleared by the ED provider. Reviewing the electronic medical record, I note that this is patient's first visit to [facility]. Patient seen and examined with nurse. Chart reviewed. Case discussed with nursing staff. On my examination today, the patient presents as tearful and dysphoric. She admits to "terrible" mood as well as sleep and appetite disturbance and hopeless feelings. However, the patient presently denies that her presenting overdose was suicidal in nature. She remembers making the overdose, saying that she took the Ativan tablets perhaps 4 or 5 at a time over several hours but insists that she cannot recall why she did so. The most that she will say is "I just kept at it. I had not had it in so long." Patient notes that she has been without her psychotropic medications since she moved down from [place] in February. She apparently recently began seeing a new outpatient provider who provided the prescription for the Ativan Along with her other psychotropics. I can elicit no hypomanic or manic symptoms. She denies any audiovisual hallucinations. I can elicit no delusional material. The remainder of the psychiatric ROS is negative. The patient has no acute physical complaints. Past psychiatric history: The patient reports a history of bipolar disorder. She recently began seeing a new provider by the name tova Tran at [facility]. She reports that she does well on Trileptal 300 mg twice daily, Seroquel 300 mg at bedtime, Ativan 2 mg up to 3 times daily and Adderall 20 mg twice daily. She denies a history of psychiatric admissions. Denies a history of suicide attempts. Denies a history of violent behavior. Family history: The patient reports that her mother has bipolar disorder. There is no family history of suicide. Chemical dependency history: The patient denies any abuse of drugs or alcohol. Social history: Patient has a fiancee and 2 children. She is college educated with a degree in business. She is presently on SSDI. She denies any history. Denies any legal history. Denies any access to guns or firearms. Describes herself as spiritual. Denies any history of trauma. Tobacco Use In Past 30 Days: No Tobacco Past 30 Days Alcohol Use: 2-3 Times Per Week Hospital Course Patient was admitted to a locked, inpatient psychiatric unit. A general medical consultation was obtained. Appropriate precautions were in place throughout patient's hospital stay. Patient was seen and examined on the unit by psychiatry and also visited by counselor. Psychotropic medications were adjusted. Patient tolerated medications well without side effects. Patient had improvement in presenting psychiatric symptomatology during the course of her hospital stay. There was no evidence of any suicidality or homicidality on the inpatient unit. There was no evidence of self-care deficit. Patient remained in good behavioral control and was medication compliant. Collateral information was obtained from the patient's boyfriend by the counselor, and boyfriend is reportedly comfortable with patient returning home today. On the day of discharge: Patient seen and examined with nurse. Chart reviewed. Case discussed with nurse. No behavioral issues noted overnight. Case discussed with counselor. On my examination today, the patient is requesting discharge from the inpatient psychiatric unit today. She denies any suicidal or homicidal ideation, intent or plan on direct questioning and contracts for safety. Mood is stable, and I can elicit no severe depressive or hypomanic/ manic symptoms. She denies audiovisual hallucinations, and I can elicit no delusional beliefs. There is no evidence of any impairment in reality construction. She denies side effects from medications. No acute physical complaints. Weighing the relevant factors and based on the available evidence, I activities leader that the patient does not meet criteria for involuntary psychiatric hospitalization. She is requesting discharge from the inpatient psychiatric unit today, and I have no basis to retain her over her objection. Patient will be discharged today with psychiatric follow-up as arranged by counselor. Patient is also to follow up with primary care. I have counseled patient to abstain from any substances of abuse. I have counseled patient regarding warning signs for need to return to psychiatric emergency room as part of a general safety plan. Results Blood Pressure 119 / 77 Vital Signs Date Time Temp Pulse Resp B/P (MAP) Pulse Ox O2 Delivery O2 Flow Rate FiO2 06/21/17 05:26 98.1 82 14 119/77 (91) 100 06/18/17 18:03 Room Air Laboratory Tests Test 06/18/17 15:03 06/19/17 07:40 06/20/17 06:58 Urine Cocaine Screen POS (NEG) Blood Urea Nitrogen 19 MG/DL (7-18) Random Glucose 111 MG/DL (74-106) Estimat Glomerular Filtration Rate 68 ML/MIN (>89) Triglycerides Level 195 MG/DL (42-150) Cholesterol Level 286 MG/DL (120-200) LDL Cholesterol 150 MG/DL (0-99) HDL Cholesterol 96.6 MG/DL (40.0-60.0) Laboratory Results Test 06/19/17 07:40 Cholesterol Level 286 MG/DL (120-200) HDL Cholesterol 96.6 MG/DL (40.0-60.0) Hemoglobin A1c 4.7 % (4.3-6.0) LDL Cholesterol 150 MG/DL (0-99) Triglycerides Level 195 MG/DL (42-150) Summary of Procedures None done Imaging None done Pending results at discharge: No Medications # of Antipsychotic meds at D/C: 1 Approp Antipsych med options 1 - Minimum of three failed multiple trials of monotherapy. 2 - Documented plan to taper to monotherapy due to previous use of multiple meds OR cross-taper in progress at D/C. 3 - Documentation of augmentation of Clozapine. 4 - Justification other than those listed in allowable values 1-3, document here : Discharge Discharge Date: Jun 21, 2017 Discharge Diagnosis: (1) Adjustment disorder with mixed disturbance of emotions and conduct Diagnosis: Principal (resolved) ICD Code: F43.25 - Adjustment disorder with mixed disturbance of emotions and conduct (2) History of bipolar disorder Diagnosis: Secondary (stable) ICD Code: Z86.59 - Personal history of other mental and behavioral disorders Status: Chronic Pt Condition on Discharge: Stable Discharge Disposition: Discharge Home Discharge Instructions Diet Instructions: As Tolerated, No Restrictions Activities you can perform: Weight Bearing as Fran Scheduled Appointment: COAL GASIFICATION TECHNICIAN Appointment Date: Jun 21, 2017 Appointment Time: 12:00pm New Orders: BASIC METABOLIC PROF - 1 Week New Medications: Folic Acid (Folic Acid) 1 Mg Tablet 1 MG PO DAILY for Nutritional Supplement for 30 Days, #30 TAB 0 Refills Oxcarbazepine (Oxcarbazepine) 300 Mg Tab 300 MG PO BID for Mental Health, #1 TAB 0 Refills Home med. Order is to update med rec only. Quetiapine (Quetiapine) 100 Mg Tab 300 MG PO HS for Mental Health, #1 TAB 0 Refills Home med. Order is to update med rec only. Thiamine HCl (Gnp Vitamin B-1) 100 Mg Tab 100 MG PO DAILY for Nutritional Supplement for 30 Days, #30 TAB 0 Refills Continued Medications: Acyclovir (Acyclovir) 400 Mg Tab 400 MG PO 5 TIMES A DAY for Mgmt Viral Infection, TAB 0 Refills Fluticasone Nasal [place] (Fluticasone Nasal [place]) 50 Mcg/Act Naspr 50 MCG EACH NARE BID for Allergy Management, #1 BOTTLE 0 Refills 50 mcg/spray Discontinued Medications: Amphetamine-Dextroamphetamine (Adderall) 20 Mg Tab 20 MG PO BID for Hyperactivity Control, #60 TAB 0 Refills Avoid late evening doses. Space doses at least 4 to 6 hours if more than once/day dosing. Aripiprazole (Aripiprazole) 10 Mg Tab 10 MG PO DAILY, #30 TAB 0 Refills Clonazepam (Klonopin) 1 Mg Tab 1 MG PO TID, #90 TAB [address] (Divalproex DR) 500 Mg Tabdr 500 MG PO TID for Control Seizures, #60 TAB 0 Refills Lorazepam (Ativan) 0.5 Mg Tab 0.5 MG PO DAILY PRN for ANXIETY AND/OR AGITATION, TAB 0 Refills Quetiapine (Seroquel) 300 Mg Tab 300 MG PO DAILY, #30 TAB 0 Refills Discharge Time <= 30 minutes Mental Status Examination Appearance: Appropriate Consciousness: Alert Orientation: x4 Motor Activity: Normal gait, Other (No signs of withdrawal noted. No abnormal motor movements appreciated.) Speech: Unremarkable Language: Adequate Fund of Knowledge: Adequate Attention and Concentration: Adequate Memory: Unremarkable Mood: Appropriate Affect: Appropriate Thought Process & Associations: Intact, Logical, Goal directed, Linear Thought Content: Appropriate Hallucination Type: None Delusion Type: None Suicidal Ideation: No Suicidal Plan: No Suicidal Intention: No Homicidal Ideation: No Homicidal Plan: No Homicidal Intention: No Mental Status Exam Remarks Insight and judgment are perhaps fair Discharge/Advance Care Plan Health Problems: (1) Adjustment disorder with mixed disturbance of emotions and conduct (2) History of bipolar disorder Goals to promote your health * To prevent worsening of your condition and complications * To maintain your health at the optimal level Directions to meet your goals Take your medications as prescribed Follow your dietary instruction Follow activity as directed Keep your appointments as scheduled Take your immunizations and boosters as scheduled If your symptoms worsen call your PCP, if no PCP go to Urgent Care Center or Emergency Room For 19/09 questions related to your inpatient stay or results of tests pending at discharge, please contact Dr. Saw Hook at Smoking is Dangerous to Your Health. Avoid second hand smoking Saw Hook MD Jun 21, 2017 10:16
== END 2017-06-21 10:55 | disposition home or self-care (01) | DRG 882 ==
LOC: NEPC 19:29 → NEDA 06-18 15:22 → H260 06-18 23:10
PROVIDERS: ADMIT Psychiatry & Neurology Psychiatry; ATTEND Psychiatry & Neurology Psychiatry
DX: F43.25 Adjustment disorder with mixed disturbance of emotions and conduct (principal); E78.1 Pure hyperglyceridemia; E78.5 Hyperlipidemia, unspecified; F31.9 Bipolar disorder, unspecified; Y92.9 Unspecified place or not applicable; Z81.8 Family history of other mental and behavioral disorders; T42.4X4A Poisoning by benzodiazepines, undetermined, initial encounter; F10.129 Alcohol abuse with intoxication, unspecified; Y90.6 Blood alcohol level of 120-199 mg/100 ml
CPT/HCPCS: 80048; 80053; 80061; 80307; 83036; 84443; 85025; 86703; 86803; 93005

== ENCOUNTER 2017-07-09 13:33 | Emergency (ER) | payer MEDICARE ==
[~2017-07-09] VITALS: Ht 157.5 cm; Wt 52.0 kg
[~2017-07-09 13:33] MED LIST changes: -ADDE20 PO; -ARIP1TAB12 PO; -CLON1 PO; -DIVA500T PO; +FOLI1TAB6 PO; +OXCA300T PO; +QUET1TAB8 PO; -SERO300T PO; +THIA100 PO
[2017-07-09 13:37] VITALS: BP 124/81; PULSE 120; RESP 24; TEMP 96.9; O2SAT 99
[2017-07-09] MEDS ORDERED: OXCA150T (13:51)
[2017-07-09] MEDS ORDERED: ADDE20 PO (13:51)
--- NOTE | 2017-07-09 14:13 | PD ---
HPI . Marc Act Chief Complaint: Psychiatric Symptoms Time Seen by Provider: 13:52 Travel History International Travel<30 days: No Contact w/Intl Traveler<30days: No Traveled to known affect area: No History of Present Illness HPI This patient is brought to us as a Marc Act. She is an admitted alcoholic. She states that she has been on a drinking binge. She states that she felt that it was . She states that there was a knock on her door today and that it was the police with a Marc Act. She believes that the Marc Act was initiated by her boyfriend. She states that she admits that she has been drinking a lot but states that she was drinking in her own home not hurting anyone except for self and that she does not have any homicidal or suicidal ideation. Her only complaint is feeling anxious. She has a history of anxiety and normally takes Ativan. She states that she has recently moved here and does not have a prescription for Ativan. Her anxiety has escalated following the arrival of the police. Symptoms are moderate. PFSH Past Medical History Bipolar Disorder: Yes Anxiety: Yes Depression: Yes Cancer: No Cardiovascular Problems: No Endocrine: No Genitourinary: No Immune Disorder: No Musculoskeletal: No Neurologic: No Psychiatric: Yes (RECENT ADMIT TO [place]) Reproductive: Yes (VIRAL INFECTION/ACYCLOVIR ORDERED) Respiratory: Yes (SINUS ISSUES/FLONASE ORDERED) ?: Not Social History Alcohol Use: Yes Tobacco Use: No Substance Use: Yes Allergies-Medications (Allergen,Severity, Reaction): Coded Allergies: Penicillins (Verified Allergy, Unknown, 07/09/17) Reported Meds & Prescriptions Reported Meds & Active Scripts Active Gnp Vitamin B-1 (Thiamine HCl) 100 Mg Tab 100 Mg PO DAILY 30 Days Folic Acid 1 Mg Tablet 1 Mg PO DAILY 30 Days Quetiapine (Quetiapine Fumarate) 100 Mg Tab 300 Mg PO HS Home med. Order is to update med rec only. Reported Oxcarbazepine 150 Mg Tab 150 Mg BID Adderall (Amphetamine-Dextroamphetamine) 20 Mg Tab 20 Mg PO BID Avoid late evening doses. Space doses at least 4 to 6 hours if more than once/day dosing. Acyclovir 400 Mg Tab 400 Mg PO 5 TIMES A DAY Review of Systems Except as stated in HPI: all other systems reviewed are Neg Psychiatric: Positive: Anxiety, Substance Abuse, No: Suicidal Ideations, Disorder of Thought, Homicidal Ideation Physical Exam Narrative GENERAL: Awake and alert and in no acute distress. SKIN: Warm and dry. HEAD: Normocephalic/atraumatic. EYES: Pupils are equal. Extraocular movements are intact. NECK: Normal range of motion. CARDIOVASCULAR: Regular rate and rhythm. RESPIRATORY: Nonlabored respirations. Lungs are clear with full air movement throughout. MUSCULOSKELETAL: Atraumatic. NEUROLOGICAL: A and O 3. Cranial nerves are intact. Normal movement of all 4 extremities. Normal gait. PSYCHIATRIC: Appropriate mood and affect. No SI/HI. No apparent psychotic symptoms. Data Data Last Documented VS Vital Signs Date Time Temp Pulse Resp B/P (MAP) Pulse Ox O2 Delivery O2 Flow Rate FiO2 07/09/17 13:37 96.9 120 24 124/81 (95) 99 Orders Orders Hydroxyzine Hcl (Atarax) (07/09/17 14:15) MDM Medical Decision Making Medical Screen Exam Complete: Yes Emergency Medical Condition: Yes Differential Diagnosis My differential diagnosis of Marc Act includes but is not limited to malingering, acute psychosis, depression with suicidal ideation, homicidal ideation, poor education of the correction officer city or county jail Narrative Course This patient is brought to us as a Marc Act. She does not meet the criteria for a Marc Act. ``Mental illness means an impairment of the mental or emotional processes that exercise conscious control of ones actions or of the ability to perceive or understand reality, which impairment substantially interferes with the person s ability to meet the ordinary demands of living. For the purposes of this part , the term does not include a developmental disability as defined in chapter 393 , intoxication, or conditions manifested only by antisocial behavior or substance abuse. This patient is an alcoholic. As such, she does not meet criteria for a Marc Act. The Marc Act has been lifted. She can be discharged when she has a ride home. Diagnosis Primary Impression: Alcoholism Disposition: 01 DISCHARGE HOME Condition: Stable Lauren Yu MD July 09, 2017 14:13
[2017-07-09] MEDS ORDERED: hydrOXYzine HCL 50 MG TAB PO ONE (14:15)
== END 2017-07-09 14:37 | disposition home or self-care (01) ==
LOC: NEPD 13:33
DX: F10.20 Alcohol dependence, uncomplicated (principal); F31.9 Bipolar disorder, unspecified; F41.9 Anxiety disorder, unspecified; Z88.0 Allergy status to penicillin; Z79.899 Other long term (current) drug therapy
CPT/HCPCS: 99283